=== PATIENT | female | born 1990 | race Caucasian/White ===

== ENCOUNTER 2016-06-01 03:01 | Emergency (ER) | payer OTHER ==
--- NOTE | 2016-06-01 03:25 | ED NURSING NOTES ---
Clinical Report - Nurses [facility] [address] [place] [address] 06/01/2016 3:02 Patient: PEPE AGARWAL TRIAGE Triage time 0308 AM. Acuity: LEVEL 4. Chief Complaint: RIGHT LOWER TOOTHACHE. Alert. No acute distress. --03:11 Moise Zuñiga R.N. 03:08 06/01/16. BP: 135/70. HR: 123. RR: 20. O2 saturation: 100%. Temp: 98.6 F. Pain level now: 01/10. --03:11 Moise Zuñiga R.N. Weight: 95.2 kg stated. Height/Length: 65 inches Per Patient. BMI: 35. --03:09 Moise Zuñiga R.N. Medications Amoxicillin Oral. --03:10 Moise Zuñiga R.N. Hydrocodone-Acetaminophen Oral. --03:10 Moise Zuñiga R.N. Allergies Latex. --03:10 Moise Zuñiga R.N. History Arrived by private vehicle. Historian: patient. Accompanied by family. Onset was gradual. (a few days ago). ( Patient presents to the ED with symptoms of right lower dental pain x 2 days. Patient states that she went and saw her dentist today who prescribed amoxicillin and hydrocodone. Patient states that she is nauseous and throwing up the medication.). She has a dental appointment scheduled. ( nausea). PAST MEDICAL HX: Dental caries. Immunizations: up-to-date. SOCIAL HX: Never smoker. Alcohol use. (no). History of drug use. (no). FALL RISK ASSESSMENT: Fall risk assessment completed. No fall risk identified. NUTRITIONAL RISK ASSESSMENT: The nutritional risk assessment revealed no deficiencies. FUNCTIONAL ASSESSMENT: Functional assessment: no impairments noted. LEARNING NEEDS ASSESSMENT: The learning needs assessment revealed no barriers. SKIN INTEGRITY ASSESSMENT: Skin integrity risk assessment completed. No skin integrity risk identified. --03:11 Moise Zuñiga R.N. PROBLEMS: no known problems. ADDITIONAL SURGERIES: Cholecystectomy. --03:11 Moise Zuñiga R.N. Interventions ID band on patient. To treatment room. --03:11 Moise Zuñiga R.N. PHYSICAL ASSESSMENT Ambulatory to room. GENERAL / NEURO / PSYCH: Alert. Appears in no acute distress. HEENT: Facial swelling present. Dental tenderness (right lower molar). Dental decay. Mucous membranes are pink. RESPIRATORY: Respirations not labored. CVS: Capillary refill less than 2 seconds. SKIN: Skin is warm and dry. Normal skin turgor. --03:15 Moise Zuñiga R.N. NURSING PROGRESS NOTES Reassurance given. Call light placed in reach. Side rails up x 2. Bed placed in lowest position. Brakes of bed on. --03:16 Moise Zuñiga R.N. 03:27 06/01/2016 Zofran ODT (Ondansetron) PO Oral Disintegrating Tablets 4 mg given. Allergies verified and confirmed 5 rights. --03:27 Moise Zuñiga R.N. 03:28 06/01/2016 Toradol (Ketorolac Tromethamine) IM 60 mg given. Given in the right deltoid. Allergies verified and confirmed 5 rights. --03:28 Moise Zuñiga R.N. DISPOSITION / DISCHARGE Condition at departure: improved. The goals identified in the patient's plan of care were met. Reviewed medication(s) side effects, precautions, dosing and course information. Prescription(s) given to the patient. Patient verbalized understanding. Written instructions provided in Indonesian. The patient was discharged home and accompanied by spouse. She left the Emergency Department ambulatory and via private vehicle. Spouse driving. FALL RISK ASSESSMENT: Fall risk assessment completed. No fall risk identified. --03:56 Moise Zuñiga R.N. 03:54 06/01/16. BP: 126/79. HR: 99. RR: 16. O2 saturation: 100%. Pain level now: 05/13. --03:56 Moise Zuñiga R.N. Departure time: 0356 PM. --03:56 Moise Zuñiga R.N. Locked/Released at 06/01/2016 3:56 by Moise Zuñiga R.N.
--- NOTE | 2016-06-01 03:25 | ED CLINICAL REPORT ---
Clinical Report - Physicians/Mid Levels [facility] [address] [place] [address] 06/01/2016 3:02 Patient: PEPE AGARWAL Time Seen: 03:16. Arrived- By private vehicle. Historian- patient. HISTORY OF PRESENT ILLNESS Chief Complaint: DENTAL PAIN. This started 2 days ago and is still present. It was abrupt in onset and has been constant and waxing/waning. Pain described as severe. The patient has had severe toothache involving multiple teeth (right lower). Recent medical care: The patient was seen recently at another facility in a clinic. ( she went and saw her dentist today who prescribed amoxicillin and hydrocodone.She says that she is nauseated and has been throwing up the medication). REVIEW OF SYSTEMS No chills, fever, sweats, calf pain or chest pain. No cough, difficulty breathing, pedal edema, palpitations or abdominal pain. No constipation or urinary problems. She has had nausea. She has had vomiting (she attributes this to the medications that the dentist prescribed today). All systems otherwise negative, except as recorded above. PAST HISTORY Problems: Dental Caries. Additional Surgeries: Cholecystectomy. Medications: Hydrocodone-Acetaminophen Oral. Amoxicillin Oral. Allergies: Latex. SOCIAL HISTORY Never smoker. No alcohol use or drug use. FAMILY HISTORY No significant family medical history. ADDITIONAL NOTES The nursing notes have been reviewed. PHYSICAL EXAM Vital Signs: 06/01/2016 03:08 BP: 135/70. HR: 123. RR: 20. O2 saturation: 100%. Temp: 98.6 F. Pain level now: 10/10. Have been reviewed. Appearance: Alert. Eyes: Pupils equal, round and reactive to light. ENT: Moderate dental decay with gingival tenderness, induration and swelling (lower right teeth). No gingival fluctuance. Ears normal. Pharynx normal. No trismus present. Neck: Trachea midline. No adenopathy. Thyroid normal. Neck supple. CVS: Normal heart rate and rhythm. Heart sounds normal. Respiratory: No respiratory distress. Breath sounds normal. Abdomen: Soft and nontender. No organomegaly. Skin: Normal skin color. Normal skin turgor. Extremities: Extremities exhibit normal ROM. PROGRESS AND PROCEDURES Course of Care: Patient is stable. Patient/family counseled. Old medical records ordered. Old records unavailable. Disposition: Discharged. Condition: stable. CLINICAL IMPRESSION Dental pain. Dental caries. INSTRUCTIONS Drink plenty of fluids. Warnings: Further evaluation is necessary. GENERAL WARNINGS: Return or contact your physician immediately if your condition worsens or changes unexpectedly, if not improving as expected, or if other problems arise. Prescription Medications: Zofran 4 mg: Take 1 orally every six hours as needed for nausea/vomiting. Dispense ten (10). No refills. Substitution is permissible. Follow-up: Follow up with a dentist today. Call for an appointment. Understanding of the discharge instructions verbalized by patient. (Electronically signed by Vineet Ho MD 06/02/2016 1:39)
--- NOTE | 2016-06-01 03:25 | ED CLINICAL REPORT ---
Clinical Report - Physicians/Mid Levels [facility] [address] [place] [address] 06/01/2016 3:02 Patient: PEPE AGARWAL Time Seen: 03:16. Arrived- By private vehicle. Historian- patient. HISTORY OF PRESENT ILLNESS Chief Complaint: DENTAL PAIN. This started 2 days ago and is still present. It was abrupt in onset and has been constant and waxing/waning. Pain described as severe. The patient has had severe toothache involving multiple teeth (right lower). Recent medical care: The patient was seen recently at another facility in a clinic. ( she went and saw her dentist today who prescribed amoxicillin and hydrocodone.She says that she is nauseated and has been throwing up the medication). REVIEW OF SYSTEMS No chills, fever, sweats, calf pain or chest pain. No cough, difficulty breathing, pedal edema, palpitations or abdominal pain. No constipation or urinary problems. She has had nausea. She has had vomiting (she attributes this to the medications that the dentist prescribed today). All systems otherwise negative, except as recorded above. PAST HISTORY Problems: Dental Caries. Additional Surgeries: Cholecystectomy. Medications: Hydrocodone-Acetaminophen Oral. Amoxicillin Oral. Allergies: Latex. SOCIAL HISTORY Never smoker. No alcohol use or drug use. FAMILY HISTORY No significant family medical history. ADDITIONAL NOTES The nursing notes have been reviewed. PHYSICAL EXAM Vital Signs: 06/01/2016 03:08 BP: 135/70. HR: 123. RR: 20. O2 saturation: 100%. Temp: 98.6 F. Pain level now: 10/10. Have been reviewed. Appearance: Alert. Eyes: Pupils equal, round and reactive to light. ENT: Moderate dental decay with gingival tenderness, induration and swelling (lower right teeth). No gingival fluctuance. Ears normal. Pharynx normal. No trismus present. Neck: Trachea midline. No adenopathy. Thyroid normal. Neck supple. CVS: Normal heart rate and rhythm. Heart sounds normal. Respiratory: No respiratory distress. Breath sounds normal. Abdomen: Soft and nontender. No organomegaly. Skin: Normal skin color. Normal skin turgor. Extremities: Extremities exhibit normal ROM. PROGRESS AND PROCEDURES Course of Care: Patient is stable. Patient/family counseled. Old medical records ordered. Old records unavailable. Disposition: Discharged. Condition: stable. CLINICAL IMPRESSION Dental pain. Dental caries. INSTRUCTIONS Drink plenty of fluids. Warnings: Further evaluation is necessary. GENERAL WARNINGS: Return or contact your physician immediately if your condition worsens or changes unexpectedly, if not improving as expected, or if other problems arise. Prescription Medications: Zofran 4 mg: Take 1 orally every six hours as needed for nausea/vomiting. Dispense ten (10). No refills. Substitution is permissible. Follow-up: Follow up with a dentist today. Call for an appointment. Understanding of the discharge instructions verbalized by patient. (Electronically signed by Vineet Ho MD 06/02/2016 1:39)
--- NOTE | 2016-06-01 03:25 | ED ORDER SUMMARY ---
..... Patient: PEPE AGARWAL OrderSheet [facility] VisitID: [id number] [place] [address] 25y, F Registration Date/Time: 06/01/2016 ORDER SHEET Weight: 95.2 kg (stated) Allergies: Latex GENERAL ORDERS: MEDICATION ORDERS: Toradol IM 60 mg (NOW) (03:23 06/01/2016 Serafin ROTHMAN) (3:28 Efren R.N.) Zofran ODT PO 4 mg (NOW) (03:24 06/01/2016 Serafin ROTHMAN) (3:27 Efren R.N.) IV FLUIDS: ORDER SHEET NOTES: [Electronically signed by Moise Zuñiga R.N. (03:56 06/01/2016)] [Electronically signed by Vineet Ho MD (01:39 06/02/2016)] [Electronically locked/signed by Moise Zuñiga R.N. (03:56 06/01/2016)]
--- NOTE | 2016-06-01 03:25 | ED ORDER SUMMARY ---
..... Patient: PEPE AGARWAL OrderSheet [facility] VisitID: [id number] [place] [address] 25y, F Registration Date/Time: 06/01/2016 ORDER SHEET Weight: 95.2 kg (stated) Allergies: Latex GENERAL ORDERS: MEDICATION ORDERS: Toradol IM 60 mg (NOW) (03:23 06/01/2016 Serafin ROTHMAN) (3:28 Efren R.N.) Zofran ODT PO 4 mg (NOW) (03:24 06/01/2016 Serafin ROTHMAN) (3:27 Efren R.N.) IV FLUIDS: ORDER SHEET NOTES: [Electronically signed by Moise Zuñiga R.N. (03:56 06/01/2016)] [Electronically signed by Vineet Ho MD (01:39 06/02/2016)] [Electronically locked/signed by Moise Zuñiga R.N. (03:56 06/01/2016)]
--- NOTE | 2016-06-02 01:40 | ED DISCHARGE INSTRUCTIONS ---
Patient: PEPE AGARWAL General Instructions [facility] VisitID: [id number] [place] [address] 25y, F Registration Date/Time: 06/01/2016 Dental pain. Dental caries. INSTRUCTIONS Drink plenty of fluids. Warnings: Further evaluation is necessary. GENERAL WARNINGS: Return or contact your physician immediately if your condition worsens or changes unexpectedly, if not improving as expected, or if other problems arise. Prescription Medications: Zofran 4 mg: Take 1 orally every six hours as needed for nausea/vomiting. Dispense ten (10). No refills. Substitution is permissible. Follow-up: Follow up with a dentist today. Call for an appointment. Understanding of the discharge instructions verbalized by patient. ADDITIONAL INFORMATION Dental Cavity A dental cavity is a pit or crater in the enamel surface of the tooth. This exposes the sensitive inner layer of the tooth and causes pain. If untreated, the cavity will get bigger and may cause an infection or abscess in the root of the tooth. An infection in the tooth is a much more serious problem and may require a root canal or removal of the entire tooth. The tooth pain may be made worse by drinking hot or cold fluids. It may spread from the tooth to the ear or jaw on the same side. Home Care: Avoid hot and cold foods, and liquids since your tooth may be sensitive to temperature changes. If your tooth is chipped or cracked, or if there is a large open cavity, apply OIL OF CLOVES (available kbyo-evp-csjrpnu in drug stores) directly to the tooth to reduce pain. Some pharmacies carry an chpy-ccq-tbsvpzk "toothache kit." This contains oil of cloves and a paste, which can be applied over the exposed tooth to decrease sensitivity. An ice pack on your jaw over the sore area may help to reduce pain. You may use acetaminophen (Tylenol) or ibuprofen (Motrin, Advil) to control pain, unless another pain medicine was prescribed. [ NOTE: If you have liver disease or ever had a stomach ulcer, talk with your doctor before using these medicines.] If you have signs of an infection, an antibiotic will be given. Take it as directed. Follow-Up with your dentist as directed. Although your pain may go away with the treatment given, only a dentist can fully evaluate and treat this problem to prevent further tooth damage. Get Prompt Medical Attention if any of the following occur: Redness or swelling of the face Pain worsens or spreads to the neck Fever over 100.5 F (38C) Unusual drowsiness; headache or stiff neck; weakness or fainting Pus drains from the tooth or gum Difficulty swallowing or breathing Dental Pain A crack or cavity in the tooth, which exposes the sensitive inner area of the tooth can cause tooth pain. An infection in the gum or the root of the tooth can cause pain and swelling. The pain is often made worse by drinking hot or cold fluids, or biting on hard foods. Pain may spread from the tooth to the ear or jaw on the same side. Home Care: Avoid hot and cold foods and liquids since your tooth may be sensitive to temperature changes. If your tooth is chipped or cracked, or if there is a large open cavity, apply OIL OF CLOVES (available quwo-qwh-hjarona in drug stores) directly to the tooth to reduce pain. Some pharmacies carry an hmpw-khi-clwmnsn "toothache kit." This contains a paste, which can be applied over the exposed tooth to decrease sensitivity. A cold pack on your jaw over the sore area may help reduce pain. You may use acetaminophen (Tylenol) or ibuprofen (Motrin, Advil) to control pain, unless another medicine was prescribed. [ NOTE: If you have chronic liver or kidney disease or ever had a stomach ulcer or GI bleeding, talk with your doctor before using these medicines.] If you have signs of an infection, an antibiotic will be given. Take it as directed. Follow-Up as directed with a dentist. Your pain may go away with the treatment given. However, only a dentist can fully evaluate and treat the cause and prevent the pain from coming back again. TOOTHACHE IS A SIGN OF DISEASE IN YOUR TOOTH AND SHOULD BE EXAMINED AND TREATED BY A DENTIST. Get Prompt Medical Attention if any of the following occur: Your face becomes swollen or red Pain worsens or spreads to the neck Fever over 100.4 F (38.0 C) Unusual drowsiness; headache or stiff neck; weakness or fainting Pus drains from the tooth Difficulty swallowing or breathing Ondansetron Oral disintegrating tablet What is this medicine? ONDANSETRON (on STACY se amarilis) is used to treat nausea and vomiting caused by chemotherapy. It is also used to prevent or treat nausea and vomiting after surgery. How should I use this medicine? These tablets are made to dissolve in the mouth. Do not try to push the tablet through the foil backing. With dry hands, peel away the foil backing and gently remove the tablet. Place the tablet in the mouth and allow it to dissolve, then swallow. While you may take these tablets with water, it is not necessary to do so. Talk to your sign writer hand regarding the use of this medicine in children. Special care may be needed. What side effects may I notice from receiving this medicine? Side effects that you should report to your doctor or health care clinician as soon as possible: allergic reactions like skin rash, itching or hives, swelling of the face, lips, or tongue breathing problems dizziness fast or irregular heartbeat feeling faint or lightheaded, falls fever and chills swelling of the hands and feet tightness in the chest Side effects that usually do not require medical attention (report to your doctor or health care clinician if they continue or are bothersome): constipation or diarrhea headache What may interact with this medicine? Do not take this medicine with any of the following medications: -apomorphine -cisapride -dofetilide -dronedarone -pimozide -thioridazine -ziprasidone This medicine may also interact with the following medications: -carbamazepine -phenytoin -rifampicin -tramadol -other medicines that prolong the QT interval (cause an abnormal heart rhythm) What if I miss a dose? If you miss a dose, take it as soon as you can. If it is almost time for your next dose, take only that dose. Do not take double or extra doses. Where should I keep my medicine? Keep out of the reach of children. Store between 2 and 30 degrees C (36 and 86 degrees F). Throw away any unused medicine after the expiration date. What should I tell my health care provider before I take this medicine? They need to know if you have any of these conditions: heart disease history of irregular heartbeat liver disease low levels of magnesium or potassium in the blood an unusual or allergic reaction to ondansetron, granisetron, other medicines, foods, dyes, or preservatives or trying to get breast-feeding What should I watch for while using this medicine? Check with your doctor or health care clinician as soon as you can if you have any sign of an allergic reaction. You have been given the following additional information: Dental Cavity Dental Pain Ondansetron Oral disintegrating tablet (Electronically signed by Vineet Ho MD 06/02/2016 1:39)
--- NOTE | 2016-06-02 01:40 | ED MED RECONCILIATION SUMMARY ---
Patient: PEPE AGARWAL Medication Reconciliation Report [facility] VisitID: [id number] [address] [place] [address] 25y, F Registration Date/Time: 06/01/2016 Weight: 95.2 kg Height/Length: 65 in. BMI: 35.0 ALLERGIES: Latex The patient's Home Medications are listed below: THE FOLLOWING MEDICATIONS NEED TO BE RECONCILED: Amoxicillin Oral Hydrocodone-Acetaminophen Oral The source(s) of the original Home Medication information: Not obtained. The following Medications were given to the patient in the Emergency Department: Zofran ODT [PO] PO 4 mg, administered: 06/01/2016 3:27:00 AM Toradol [IM] IM 60 mg, administered: 06/01/2016 3:28:00 AM The following Medications were prescribed to the patient: Zofran 4 mg: Take 1 orally every six hours as needed for nausea/vomiting. Dispense ten (10). No refills. Substitution is permissible. -- Vineet Ho MD
--- NOTE | 2016-06-02 01:40 | ED MED RECONCILIATION SUMMARY ---
Patient: PEPE AGARWAL Medication Reconciliation Report [facility] VisitID: [id number] [address] [place] [address] 25y, F Registration Date/Time: 06/01/2016 Weight: 95.2 kg Height/Length: 65 in. BMI: 35.0 ALLERGIES: Latex The patient's Home Medications are listed below: THE FOLLOWING MEDICATIONS NEED TO BE RECONCILED: Amoxicillin Oral Hydrocodone-Acetaminophen Oral The source(s) of the original Home Medication information: Not obtained. The following Medications were given to the patient in the Emergency Department: Zofran ODT [PO] PO 4 mg, administered: 06/01/2016 3:27:00 AM Toradol [IM] IM 60 mg, administered: 06/01/2016 3:28:00 AM The following Medications were prescribed to the patient: Zofran 4 mg: Take 1 orally every six hours as needed for nausea/vomiting. Dispense ten (10). No refills. Substitution is permissible. -- Vineet Ho MD
--- NOTE | 2016-06-02 01:40 | ED MAR SUMMARY ---
..... Medication Administration Record [facility] [address] [place] [address] Patient: PEPE AGARWAL Visit ID: [id number] 25y, F Weight: 95.2 kg Height/Length: 65 in BMI: 35 ALLERGIES: Latex Given 03:27 06/01/2016 Moise Zuñiga, RMelissaNMelissa Medication Administered: ZOFRAN ODT [PO] (ONDANSETRON), Dose: 4 mg Oral Disintegrating Tablets PO. Medication Ordered: Zofran ODT PO 4 mg (NOW). Given 03:28 06/01/2016 Moise Zuñiga, R.N. Medication Administered: TORADOL [IM] (KETOROLAC TROMETHAMINE), Dose: 60 mg IM. Medication Ordered: Toradol IM 60 mg (NOW).
--- NOTE | 2016-06-02 01:40 | ED DISCHARGE INSTRUCTIONS ---
Patient: PEPE AGARWAL General Instructions [facility] VisitID: [id number] [place] [address] 25y, F Registration Date/Time: 06/01/2016 Dental pain. Dental caries. INSTRUCTIONS Drink plenty of fluids. Warnings: Further evaluation is necessary. GENERAL WARNINGS: Return or contact your physician immediately if your condition worsens or changes unexpectedly, if not improving as expected, or if other problems arise. Prescription Medications: Zofran 4 mg: Take 1 orally every six hours as needed for nausea/vomiting. Dispense ten (10). No refills. Substitution is permissible. Follow-up: Follow up with a dentist today. Call for an appointment. Understanding of the discharge instructions verbalized by patient. ADDITIONAL INFORMATION Dental Cavity A dental cavity is a pit or crater in the enamel surface of the tooth. This exposes the sensitive inner layer of the tooth and causes pain. If untreated, the cavity will get bigger and may cause an infection or abscess in the root of the tooth. An infection in the tooth is a much more serious problem and may require a root canal or removal of the entire tooth. The tooth pain may be made worse by drinking hot or cold fluids. It may spread from the tooth to the ear or jaw on the same side. Home Care: Avoid hot and cold foods, and liquids since your tooth may be sensitive to temperature changes. If your tooth is chipped or cracked, or if there is a large open cavity, apply OIL OF CLOVES (available zanr-qur-bubpgai in drug stores) directly to the tooth to reduce pain. Some pharmacies carry an vhca-vnk-ttvgfrz "toothache kit." This contains oil of cloves and a paste, which can be applied over the exposed tooth to decrease sensitivity. An ice pack on your jaw over the sore area may help to reduce pain. You may use acetaminophen (Tylenol) or ibuprofen (Motrin, Advil) to control pain, unless another pain medicine was prescribed. [ NOTE: If you have liver disease or ever had a stomach ulcer, talk with your doctor before using these medicines.] If you have signs of an infection, an antibiotic will be given. Take it as directed. Follow-Up with your dentist as directed. Although your pain may go away with the treatment given, only a dentist can fully evaluate and treat this problem to prevent further tooth damage. Get Prompt Medical Attention if any of the following occur: Redness or swelling of the face Pain worsens or spreads to the neck Fever over 100.5 F (38C) Unusual drowsiness; headache or stiff neck; weakness or fainting Pus drains from the tooth or gum Difficulty swallowing or breathing Dental Pain A crack or cavity in the tooth, which exposes the sensitive inner area of the tooth can cause tooth pain. An infection in the gum or the root of the tooth can cause pain and swelling. The pain is often made worse by drinking hot or cold fluids, or biting on hard foods. Pain may spread from the tooth to the ear or jaw on the same side. Home Care: Avoid hot and cold foods and liquids since your tooth may be sensitive to temperature changes. If your tooth is chipped or cracked, or if there is a large open cavity, apply OIL OF CLOVES (available scai-yra-jroiela in drug stores) directly to the tooth to reduce pain. Some pharmacies carry an hfpr-bwh-ayrpcnh "toothache kit." This contains a paste, which can be applied over the exposed tooth to decrease sensitivity. A cold pack on your jaw over the sore area may help reduce pain. You may use acetaminophen (Tylenol) or ibuprofen (Motrin, Advil) to control pain, unless another medicine was prescribed. [ NOTE: If you have chronic liver or kidney disease or ever had a stomach ulcer or GI bleeding, talk with your doctor before using these medicines.] If you have signs of an infection, an antibiotic will be given. Take it as directed. Follow-Up as directed with a dentist. Your pain may go away with the treatment given. However, only a dentist can fully evaluate and treat the cause and prevent the pain from coming back again. TOOTHACHE IS A SIGN OF DISEASE IN YOUR TOOTH AND SHOULD BE EXAMINED AND TREATED BY A DENTIST. Get Prompt Medical Attention if any of the following occur: Your face becomes swollen or red Pain worsens or spreads to the neck Fever over 100.4 F (38.0 C) Unusual drowsiness; headache or stiff neck; weakness or fainting Pus drains from the tooth Difficulty swallowing or breathing Ondansetron Oral disintegrating tablet What is this medicine? ONDANSETRON (on STACY se amarilis) is used to treat nausea and vomiting caused by chemotherapy. It is also used to prevent or treat nausea and vomiting after surgery. How should I use this medicine? These tablets are made to dissolve in the mouth. Do not try to push the tablet through the foil backing. With dry hands, peel away the foil backing and gently remove the tablet. Place the tablet in the mouth and allow it to dissolve, then swallow. While you may take these tablets with water, it is not necessary to do so. Talk to your cam specialist regarding the use of this medicine in children. Special care may be needed. What side effects may I notice from receiving this medicine? Side effects that you should report to your doctor or health home day care provider as soon as possible: allergic reactions like skin rash, itching or hives, swelling of the face, lips, or tongue breathing problems dizziness fast or irregular heartbeat feeling faint or lightheaded, falls fever and chills swelling of the hands and feet tightness in the chest Side effects that usually do not require medical attention (report to your doctor or health home day care provider if they continue or are bothersome): constipation or diarrhea headache What may interact with this medicine? Do not take this medicine with any of the following medications: -apomorphine -cisapride -dofetilide -dronedarone -pimozide -thioridazine -ziprasidone This medicine may also interact with the following medications: -carbamazepine -phenytoin -rifampicin -tramadol -other medicines that prolong the QT interval (cause an abnormal heart rhythm) What if I miss a dose? If you miss a dose, take it as soon as you can. If it is almost time for your next dose, take only that dose. Do not take double or extra doses. Where should I keep my medicine? Keep out of the reach of children. Store between 2 and 30 degrees C (36 and 86 degrees F). Throw away any unused medicine after the expiration date. What should I tell my health care provider before I take this medicine? They need to know if you have any of these conditions: heart disease history of irregular heartbeat liver disease low levels of magnesium or potassium in the blood an unusual or allergic reaction to ondansetron, granisetron, other medicines, foods, dyes, or preservatives or trying to get breast-feeding What should I watch for while using this medicine? Check with your doctor or health home day care provider as soon as you can if you have any sign of an allergic reaction. You have been given the following additional information: Dental Cavity Dental Pain Ondansetron Oral disintegrating tablet (Electronically signed by Vineet Ho MD 06/02/2016 1:39)
--- NOTE | 2016-06-02 01:40 | ED MAR SUMMARY ---
..... Medication Administration Record [facility] [address] [place] [address] Patient: PEPE AGARWAL Visit ID: [id number] 25y, F Weight: 95.2 kg Height/Length: 65 in BMI: 35 ALLERGIES: Latex Given 03:27 06/01/2016 Moise Zuñiga, RMelissaNMelissa Medication Administered: ZOFRAN ODT [PO] (ONDANSETRON), Dose: 4 mg Oral Disintegrating Tablets PO. Medication Ordered: Zofran ODT PO 4 mg (NOW). Given 03:28 06/01/2016 Moise Zuñiga, R.N. Medication Administered: TORADOL [IM] (KETOROLAC TROMETHAMINE), Dose: 60 mg IM. Medication Ordered: Toradol IM 60 mg (NOW).
== END 2016-06-01 03:57 | disposition home or self-care (01) ==
LOC: ED SRH 03:01
DX: K02.9 Dental caries, unspecified (principal); K08.89 Other specified disorders of teeth and supporting structures; Z91.040 Latex allergy status